=== PATIENT | male | born 1950 | race African-American/Black ===

== ENCOUNTER 2019-02-18 08:01 | Outpatient (CLI) | payer MEDICARE, BC ==
--- NOTE | 2019-02-18 10:24 | CT ---
CT ABDOMEN AND PELVIS WITHOUT IV CONTRAST: Date: 02/18/19 Multiplanar reconstruction. INDICATION: Proteinuria. Dysuria. Hematuria. No comparison. FINDINGS: Lung bases are clear. Review of the liver reveals hepatic cyst in the upper left lobe under the diaphragm measuring 2.0 cm. A second left lobe cyst is seen more inferiorly measuring 2.7 cm. The spleen and pancreas appear unremarkable. Consider limitations of an unenhanced study. Adrenal glands are normal. Review of the kidneys show bilateral perinephric stranding. There is a 9-10 mm calculus in the mid po le collecting structures of the left kidney. Vascular calcifications are seen within the pelvis of ayde th kidneys. There is probably a calculus in the lower pole of the left kidney measuring approximately 2-3 mm, although this may be vascular in origin. There is no hydronephrosis. There is a complex cystic lesion extending from the superior left kidney measuring 3.0 cm. Density re corded at 13 Hounsfield units. Another mildly complex cystic lesion extending from the medial left ki dney measures 1.5 cm. Ureters are normal caliber bilaterally. Review of the urinary bladder reveals mildly distended bladder with bladder wall thickening. Prominen t prostatic hypertrophy is seen impinging on the floor of the bladder. There is a bladder calculus in the floor of the bladder which measures 1.2 cm slightly to the right o f midline. A mucosal lesion in the floor of the bladder cannot be excluded given the prostatic imping ement on the bladder. This should be further evaluated with cystoscopy. The small bowel loops appear normal caliber. Appendix is normal. Stool throughout the colon with scat tered diverticula. Aorta is calcified and normal caliber. No adenopathy. IMPRESSION: 1. Urinary bladder is mildly distended with bladder wall thickening. There is a bladder calculus evin suring 1.2 cm in the floor of the bladder to the right of midline. 2. There is prostatic hypertrophy. The prostate impinges on the bladder. There is abnormal density i nvolving the floor of the bladder which may represent prostate; however, mucosal lesion within the bl adder cannot be excluded. Recommend urologic consultation and evaluation with cystoscopy. 3. At least one calculus measuring 1.0 cm in the upper pole collecting structures of the left kidney . 4. Mildly complex cystic lesions from the left kidney. Follow-up recommended to ensure stability. 5. Hepatic cysts are identified as described. POS: [facility]
== END 2019-02-18 08:02 | disposition home or self-care (01) ==
LOC: CT 08:01
PROVIDERS: ATTEND Physician Assistant
DX: R80.9 Proteinuria, unspecified (principal); R30.0 Dysuria; R31.29 Other microscopic hematuria; K76.89 Other specified diseases of liver; N28.89 Other specified disorders of kidney and ureter; N20.0 Calculus of kidney; N40.0 Benign prostatic hyperplasia without lower urinary tract symptoms; N21.0 Calculus in bladder
CPT/HCPCS: 74176